=== PATIENT | male | born 1960 | race Caucasian/White ===

== ENCOUNTER 2017-12-21 07:41 | Day surgery (SDC) | payer OTHER ==
[~2017-12-21] VITALS: Ht 182.9 cm; Wt 81.6 kg
[2017-12-21] VITALS (9 sets, daily range): BP systolic 133–150; BP diastolic 91–105
[~2017-12-21 07:41] MED LIST: LR 1000ml 1,000 ML IVLG SCH
[2017-12-21] MEDS ORDERED: METOPROLOL TART50 M1 ORAL (08:28)
[2017-12-21] MEDS ORDERED: ATORVASTATIN CA20 MG ORAL (08:28)
[2017-12-21] MEDS ORDERED: DIOVAN80 MG ORAL (08:28)
[2017-12-21] MEDS ORDERED: HYDROCHLOROTH12.5 M2 ORAL (08:28)
[2017-12-21] MEDS ORDERED: AMLODIPINE BESYL5 MG ORAL (08:28)
--- NOTE | 2017-12-21 08:40 | Anethesia Preoperative Eval ---
Anesthesia Pre-op PMH/ROS General Date of Evaluation: Dec 21, 2017 Time of Evaluation: 08:40 Anesthesiologist: Franci Malin ASA Score: ASA 2 Mallampati Score Class I : Soft palate, uvula, fauces, pillars visible Class II: Soft palate, uvula, fauces visible Class III: Soft palate, base of uvula visible Class IV: Only hard plate visible Mallampati Classification: Class II Surgeon: Camelia Diagnosis: diagnostic, rectal bleeding, hx diverticulosis Surgical Procedure: EGD & colonscopy Anesthesia History: none Family History: no anesthesia problems Allergies: Coded Allergies: No Known Allergies (Unverified , 12/20/17) Medications: see eMAR Past Medical History Cardiovascular: Reports: HTN, other - hyperlipidemia; Denies: CAD, NH, valve dz, arrhythmia Pulmonary: Reports: asthma, COPD, JOSE, other Gastrointestinal/Genitourinary: Reports: GERD, CRI, ESRD, other - diverticulosis Neurologic/Psychiatric: Reports: depression/anxiety; Denies: dementia, CVA, TIA, other Endocrine: Denies: DM, hypothyroidism, steroids, other HEENT: Denies: cataract (L), cataract (R), glaucoma, [place] (L), [place] (R), other Hematology/Immune: Denies: anemia, DVT, bleeding disorder, other Musculoskeletal/Integumentary: Reports: other - chronic lower back pain; Denies: OA, RA, DJD, DDD, edema PMH Narrative: 57 yo male with history of HTN (not well controlled); hyperlipidemia, chronic back pain, depression here for diagnostic EGD & colonscopy PSxH Narrative: multiple prior anesthetics w/o anesthetic complications Anesthesia Pre-op Phys. Exam Physician Exam Last Vital Signs Date Time Temp Pulse Resp B/P (MAP) Pulse Ox O2 Delivery O2 Flow Rate FiO2 12/21/17 08:34 Room Air 12/21/17 08:14 98.3 95 18 150/97 (114) 96 98.3 Constitutional: NAD Neurologic: CN 2-12 intact, other - c/o significant back pain Cardiovascular: RRR Respiratory: CTA Gastrointestinal: S/NT/ND Airway Exam Mallampati Score: Class III MO: full Neck: limited ROM: limited Teeth: intact Dentures: no upper, no lower Anesthesia Pre-op A/P Risk Assessment & Plan Assessment: Need for anesthesia, c/o lower back pain Plan: MAC Status Change Before Surgery: Franci Turner CRNA Dec 21, 2017 08:40
--- NOTE | 2017-12-21 08:44 | Short Stay Surgery H&P ---
History of Present Illness History of Present Illness Chief Complaint Rectal bleeding,abdominal pains,GERDs. HPI Mark Moffett is a 57 year old male who was admitted on for Abdominal Pain, Gerd/rectal bleeding Patient History Allergies: Coded Allergies: No Known Allergies (Unverified , 12/20/17) PAST MEDICAL HISTORY: (1) Hypertension (2) Hyperlipidemia (3) Diverticulosis (4) History of lumbar surgery Medication History Scheduled Amlodipine Besylate* (Amlodipine Besylate*), Unknown Dose ORAL DAILY, (Reported) Atorvastatin Calcium* (Atorvastatin Calcium*), 20 MG ORAL BEDTIME, (Reported) Hydrochlorothiazide* (Hydrochlorothiazide*), 12.5 MG ORAL DAILY, (Reported) Metoprolol Tartrate* (Metoprolol Tartrate*), 50 MG ORAL EVERY 12 HOURS, ( Reported) Valsartan (Diovan), 80 MG ORAL BID, (Reported) Review of Systems Cardiovascular: Reports: no symptoms Respiratory: Reports: no symptoms Skeletal: Reports: spinal disc disease Gastrointestinal: Reports: gastro esophageal reflux disease Genitourinary: Reports: no symptoms Neurologic: Reports: no symptoms Endocrine: Reports: no symptoms Hematologic: Reports: no symptoms Physical Exam Vital Signs Last Vital Signs Date Time Temp Pulse Resp B/P (MAP) Pulse Ox O2 Delivery O2 Flow Rate FiO2 12/21/17 08:34 Room Air 12/21/17 08:14 98.3 95 18 150/97 (114) 96 98.3 Skin: normal HENT: normal Heart: normal Lungs: normal Abdomen: normal Extremities: normal Genitourinary: normal Plan Plan of Care Upper and lower GI endoscopies Preop Interventions None. Summary of Findings see the reports Attestation Are the patient's medical conditions optimized for surgery? Attestation Response: yes Frank Denise MD Dec 21, 2017 08:44
--- NOTE | 2017-12-21 08:45 | Pre-Procedure Note/Attestation ---
Pre-Procedure Note/Attestation Complete Prior to Procedure Planned Procedure: left Procedure Narrative: Examination of the upper and lower GI tract Indications for Procedure Pre-Operative Diagnosis: R/O Peptic ulcer/gastritis/colitis/polyps Attestation I attest that I discussed the nature of the procedure; its benefits; risks and complications; and alternatives (and the risks and benefits of such alternatives ), prior to the procedure, with the patient (or the patient's legal termite control service representative). I attest that, if there was a reasonable possibility of needing a blood transfusion, the patient (or the patient's legal termite control service representative) was given the [facility] standardized written summary, pursuant to the [place] Blood Safety Act ([place] Health and Safety Code # 1645, as amended). I attest that I re-evaluated the patient just prior to the surgery and that there has been no change in the patient's H&P, except as documented below: Frank Denise MD Dec 21, 2017 08:45
[2017-12-21] MEDS ORDERED: Propofol 200mg/20ml IV ONE (09:00)
[2017-12-21] MEDS ORDERED: Lidocaine 1% MPF 10mg/ml 5ml ONE (09:00)
[2017-12-21] MEDS ORDERED: LR 1000ml ONE (09:00)
--- NOTE | 2017-12-21 09:19 | Endoscopy Procedure Note ---
Endoscopy Procedure Note General Indication for Procedure: Abdominal pains/GERDs/rectal bleeding Procedures Performed: EGD - Completely normal upper GI endoscopy, incidental finding of 3mm Xanthelasma lesion (fatty tissue) in second portion of the duodenum biopsied and removed (benign lesions), biopsy also done per random from gastric body, colonoscopy - Minmal internal hemorrhoids and rare left colonic divericulosis, stable and no active coloonic lesions noted. Specimen: yes Pt Tolerated Procedure Well: Yes Estimated Blood Loss: none Anesthesia Anesthesiologist: Ms. Franci Malin CRNA Anesthesia: moderate sedation Medications Medication Given: see anesthesia record Inserted Devices Implant(s) used?: No Quality Quality of Bowel Preparation: Fair Did scope reach the cecum?: Yes Was there any complications?: No GI Core Measures 50 yrs or older w/o bx or poly: Yes 10yrs. F/U not recommended: Yes 10 yrs. F/U needed: Yes Med reason:<3 yrs.: System Reason:<3 yrs.: Frank Denise MD Dec 21, 2017 09:19
--- NOTE | 2017-12-21 09:21 | Discharge Instructions ---
Discharge Instructions Discharge Instructions Follow up with: See the doctor in office after 2 weeks. For Congestive Heart Failure Reminder Report to your physician any weight gain of 5 pounds or more in one week. Frank Denise MD Dec 21, 2017 09:21
--- NOTE | 2017-12-21 09:26 | Immediate Post-Op Evaluation ---
Immediate Post-Op Evalulation Immediate Post-Op Evalulation Procedure: EGD & colonoscopy diagnostic Date of Evaluation: Dec 21, 2017 Time of Evaluation: 09:18 IV Fluids: LR 400 ml Blood Pressure Systolic: 145 Blood Pressure Diastolic: 105 Pulse Rate: 98 Respiratory Rate: 16 O2 Sat by Pulse Oximetry: 99 Pain Score (1-10): 5 Nausea: No Vomiting: No Complications Pt continues to c/o lower back pain, acetaminophen PRN ordered Patient Status: awake, reacts, patent Hydration Status: adequate Franci Malin CRNA Dec 21, 2017 09:26
[2017-12-21] MEDS ORDERED: Ketorolac 30mg Inj IV PRN (09:30)
--- NOTE | 2017-12-21 11:27 | 48 Hour Post Anesthesia Eval ---
Post Anesthesia Evaluation Procedure: EGD & colonoscopy diagnostic Date of Evaluation: Dec 21, 2017 Time of Evaluation: 09:55 Blood Pressure Systolic: 149 0: 98 Pulse Rate: 75 Respiratory Rate: 14 Temperature (Fahrenheit): 98.0 O2 Sat by Pulse Oximetry: 99 Airway: patent Nausea: No Vomiting: No Pain Intensity: 0 Hydration Status: adequate Cardiopulmonary Status: pt instructed to resume home BP meds upon discharge Mental Status/LOC: patient returned to baseline Follow-up Care/Observations: none Post-Anesthesia Complications: none noted Follow-up care needed: ready to discharge Franci Malin CRNA Dec 21, 2017 11:27
--- NOTE | 2017-12-21 16:45 | Pre-op HX & Phy Repo 2 SIG ---
DATE OF ADMISSION: 12/21/2017 This report is a medicolegal report in regards to the patient's bodily injury at job site The applicant is a 57-year-old gentleman who is being seen prior to undergoing the procedure of upper and lower GI endoscopy for which he has been scheduled as he is being planned to undergo the procedure of the second dorsolumbar surgeries that is needed because of his prior history of work-related lumbar disk condition. Since the patient has had history of occasional rectal bleeding and possibly abdominal pain; therefore, the surgeons who are going to do the procedure of disk surgery requested the performance of upper and lower GI endoscopy for clearance of this applicant. 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 He was working in a concrete industry and basically kneeling as he stood up and started to walk, he felt a pop over his knees, which was on the left side and subsequently continued to work his job. He received MRI and went through the surgery for this condition. Subsequently, he was found to have dorsolumbar pain and received epidural injections. He was diagnosed to have disk disease which required for him to undergo the surgery. He also did have cervical disk disease as well. As I mentioned, he has undergone dorsolumbar surgery for his disk condition which was performed approximately 8 years ago and he is awaiting for the neck surgery which seems to be fusion procedure soon after being cleared by these procedures of upper and lower GI endoscopy. The patient basically at this time reports that he has had occasional rectal bleeding with minimal amount and minimal abdominal pain, but he has had history of diverticular disease with significant bleeding at what time in the past as the diverticular disease is nonindustrial of course. He also has occasional discomfort over the upper part of the abdomen. PAST MEDICAL HISTORY: Basically as I mentioned history of the diverticular lesion bleeding, high blood pressure and hypercholesterolemia. SURGERIES: As mentioned dorsolumbar surgery for disk disease, work related. ALLERGIES: None significant. HABITS: The applicant does not drink alcohol except occasional beer weekly, but does not use illicit drugs and does not smoke cigarettes. MEDICATIONS: Present medications are hydrochlorothiazide, Diovan, amlodipine, atorvastatin, Voltaren gel, and hydrochlorothiazide. FAMILY HISTORY: None significant. REVIEW OF SYSTEMS: Basically history of present illness as mentioned mostly he complains of experiencing significant pain over the dorsal lumbar area consistent with disk disease as mentioned. PHYSICAL EXAMINATION: GENERAL: At this time reveals alert, well oriented gentleman, does not seem to be in any acute distress. He answers all questions properly. VITAL SIGNS: Stable HEENT: Normocephalic. Pupils are equal in size and reactive to light and accommodation. No jaundice. Buccal cavity, tongue midline, well hydrated. No any pathology or ulcers. NECK: Supple. No JVD, thyromegaly, adenopathy. CHEST: Clear to auscultation and percussion. No rales or rhonchi heard. HEART: S1 and S2 normal. Regular rhythm. ABDOMEN: Soft. There is minimal tenderness over the lower part left side mostly, but there is no hepatosplenomegaly. Bowel sounds are present. No masses palpated. EXTREMITIES: Unremarkable except severe tenderness over the lower back in the dorsal lumbar disk area. EXTREMITIES: Unremarkable otherwise. No pretibial edema cyanosis, clubbing. CENTRAL NERVOUS SYSTEM: Grossly normal. PREOPERATIVE GASTROENTEROLOGY IMPRESSION: 1. History of rectal bleeding of uncertain etiology with past history of diverticulosis, mostly at this time consistent with occasional rectal bleeding due to hemorrhoids. 2. History of gastroesophageal reflux NSAID induced with minimal abdominal pain at this point. 3. History of diverticular bleeding, stable. 4. Hypertension. 5. Hypercholesterolemia. RECOMMENDATIONS: The applicant seems to be at this time quite stable to undergo the procedure of upper and lower GI endoscopy as he was told. He understand the risks and benefits and will sign the consent. Said Nalini Denise DR: Alberto JOB#: [id number] CC:
--- NOTE | 2017-12-21 17:00 | Operative Note - Dictated ---
DATE OF OPERATION: 12/21/2017 SURGEON: Frank Denise M.D. PROCEDURE: Total colonoscopy. PREOPERATIVE DIAGNOSIS: History of rectal bleeding and diverticulosis. POSTOPERATIVE DIAGNOSIS: 1. Minimal internal hemorrhoids, which is not friable. 2. Very rare diverticulosis of the left colon, otherwise complete normal study up to the base of the cecum as examined. There is no active bleeding sites or pathology noted at this time. 3. The applicant is quite stable to undergo any dorsolumbar procedure in the near future. MEDICATION USED: Per AUTUMN Bean. INSTRUMENT: GIF Olympus videocolonoscope. DESCRIPTION OF PROCEDURE: The patient, after arriving endoscopy unit, was told about risks and benefits of the procedure, which he accepted and signed informed consent. He was then put on the left lateral decubitus position. The scope was gently advanced into the rectal area and retroflexion maneuver was applied. It revealed evidence of very minimal internal hemorrhoids, which at this time was not friable and it was thought that this was the site of the occasional minimal bleeding that the patient has complained. The scope was then passed through the rectosigmoid angle, introduced into the left colon, and gradually reached to the splenic flexure, transverse colon, and the right colon all the way to the base of the cecum. There was incidental findings of very rare diverticular lesions of the left colon. Otherwise, the colonic examination was completely within normal limits and there was no any other sites or possible source of bleeding at this time noted. Upon reaching to the base of the cecum within 7 minutes, the scope was gradually pulled out and no other pathology was found. The colon cleanup was fair, however. The patient tolerated the procedure well and left the endoscopy room in a good condition. Frank Denise M.D. DR: KAYLI JOB#: [id number] CC:
--- NOTE | 2017-12-21 20:15 | Operative Note - Dictated ---
DATE OF OPERATION: 12/21/2017 SURGEON: Frank Denise M.D. PROCEDURE: Esophagogastroduodenoscopy with biopsy. PREOPERATIVE DIAGNOSES: 1. Abdominal pain. 2. History of GERD and use of NSAID medication. POSTOPERATIVE DIAGNOSIS: Completely normal upper GI endoscopy with incidental finding of benign lesion of 3 mm fatty infiltration second portion of duodenum, which was biopsied and removed. Biopsy was also done per random from gastric body. MEDICATION USED: By Ms. , [employer] ELIGIBILITY INTERVIEWER. INSTRUMENT: GIF Olympus upper GI video endoscope. DESCRIPTION OF PROCEDURE: The patient after arriving endoscopy unit, was told about risks and benefits of the procedure, which he accepted and signed informed consent. At this time, he was put on the left lateral decubitus position. After adequate IV sedation, the scope was gently passed through the cricopharyngeal area, was lodged into the upper esophagus and gradually advanced towards gastroesophageal junction. The entire length of esophagus looked normal. No evidence of any pathology was found. GE junction also likewise within normal limits and no Dawn's or hiatal hernia noted. At this time, the scope was advanced into the stomach gastric cavity was distended with insufflation of air and gradually the areas of the fundus and the body and the antrum were examined in a closer fashion and the mucosa did not reveal any abnormality such as gastritis, polyps, tumors, bleeding sites, etc. One random biopsy from gastric body was obtained and subsequently scope was passed through normal looking pylorus. First and second portion of duodenum were examined. The duodenal bulb was completely normal and upon entering into the second portion of duodenum and the descending loop, there was an incidental finding of a 3 mm whitish infiltration consistent with fatty tissue of xanthelasma plasma, which is quite benign and it was removed with the biopsy forceps totally. Finally, the scope was pulled out and after performing the retroflexion maneuver and examining the fundus of the stomach in a closer fashion, finding no other abnormalities, procedure was terminated. The patient tolerated the procedure well. Frank Denise M.D. DR: YONY JOB#: [id number] CC:
== END 2017-12-21 11:10 | disposition home or self-care (01) ==
LOC: GAS 07:41
DX: K29.70 Gastritis, unspecified, without bleeding (principal); K64.8 Other hemorrhoids; K57.30 Diverticulosis of large intestine without perforation or abscess without bleeding; E78.5 Hyperlipidemia, unspecified; E78.00 Pure hypercholesterolemia, unspecified; I12.0 Hypertensive chronic kidney disease with stage 5 chronic kidney disease or end stage renal disease; N18.6 End stage renal disease; J44.9 Chronic obstructive pulmonary disease, unspecified; G47.33 Obstructive sleep apnea (adult) (pediatric); F32.9 Major depressive disorder, single episode, unspecified; F41.9 Anxiety disorder, unspecified; G89.29 Other chronic pain; Z79.1 Long term (current) use of non-steroidal anti-inflammatories (NSAID)
CPT/HCPCS: 43239; 45378; J2704; J7120; 94003; 94150